=== PATIENT | female | born 1990 | race Caucasian/White ===

== ENCOUNTER 2020-04-26 18:20 | Emergency (ER) | payer BC ==
[2020-04-26] MEDS ORDERED: ACETAMINOPHEN 325 MG TABLET PO ONE (20:06)
--- NOTE | 2020-04-26 20:11 | ER Document Report ---
ED Medical Screen (RME) - General Stated Complaint: VAGINAL BLEEDING Time Seen by Provider: 04/26/20 20:05 Notes: Patient is a 29-year-old female who presents emergency department with a chief complaint of vaginal bleeding that started 1 hour prior to arrival. P atient states that she has some cramping. Patient has never had bleeding before or miscarriage. Denies any clots. States that she had spotting in the beginning of her . Patient is 11 weeks and 5 days . She has seen [facility] for care. Exam: Soft nontender abdomen. I have greeted and performed a rapid initial assessment of this patient. A comprehensive ED assessment and evaluation of the patient, analysis of test results and completion of medical decision making process will be conducted by an additional ED providers. - Related Data Allergies/Adverse Reactions: haloperidol [From Haldol] Allergy (Verified 04/26/20 20:08) Physical Exam - Vital signs Vitals: Temp Pulse Resp BP Pulse Ox 98.5 F 106 H 16 132/64 H 96 04/26/20 18:54 04/26/20 18:54 04/26/20 18:54 04/26/20 18:54 04/26/20 18:54 Course - Vital Signs Vital signs: Temp Pulse Resp BP Pulse Ox 98.5 F 106 H 16 132/64 H 96 04/26/20 18:54 04/26/20 18:54 04/26/20 18:54 04/26/20 18:54 04/26/20 18:54
[2020-04-26 20:52] LABS: ABSOLUTE BASOPHILS # (AUTO) 0.1 10^3/uL (0.0-0.2); ABSOLUTE EOSINOPHILS # (AUTO) 0.4 10^3/uL (0.0-0.6); ABSOLUTE LYMPHOCYTES (AUTO) 3.2 10^3/uL (0.5-4.7); ABSOLUTE MONOCYTES (AUTO) 0.8 10^3/uL (0.1-1.4); EOSINOPHILS % (AUTO) 2.5 % (0-6); HEMOGLOBIN 13.9 g/dL (12.0-15.5); LYMPHOCYTES % (AUTO) 21.8 % (13-45); MEAN CORPUSCULAR HEMOGLOBIN 30.9 pg (27.0-33.4); MEAN CORPUSCULAR HGB CONC 34.8 g/dL (32.0-36.0); MEAN CORPUSCULAR VOLUME 89 fl (80-97); MONOCYTES % (AUTO) 5.6 % (3-13); PLATELET COUNT 254 10^3/uL (150-450); RED BLOOD COUNT 4.51 10^6/uL (3.72-5.28); RED CELL DISTRIBUTION WIDTH 13.4 % (11.5-14.0); SEGMENTED NEUTROPHILS % (AUTO) 69.1 % (42-78); TOTAL CELLS COUNTED % (AUTO) 100 %; WHITE BLOOD COUNT 14.5 10^3/uL (4.0-10.5)
[2020-04-26 21:11] LABS: ALBUMIN 4.1 g/dL (3.5-5.0); ALKALINE PHOSPHATASE 59 U/L (38-126); ANION GAP 10 (5-19); ASPARTATE AMINO TRANSFERASE 16 U/L (14-36); BILIRUBIN,DIRECT 0.2 mg/dL (0.0-0.4); BILIRUBIN,TOTAL 0.2 mg/dL (0.2-1.3); BLOOD UREA NITROGEN 9 mg/dL (7-20); CALCIUM 9.8 mg/dL (8.4-10.2); CARBON DIOXIDE 26 mmol/L (22-30); CHLORIDE 100 mmol/L (98-107); GLUCOSE 81 mg/dL (75-110); POTASSIUM 4.3 mmol/L (3.6-5.0)
[2020-04-26 21:12] LABS: APPEARANCE,URINE SLIGHTLY-CLOUDY; BILIRUBIN,URINE NEGATIVE (NEGATIVE); COLOR,URINE YELLOW; GLUCOSE, URINE NEGATIVE (NEGATIVE); KETONES,URINE NEGATIVE (NEGATIVE); LEUKOCYTE ESTERASE,URINE NEGATIVE (NEGATIVE); NITRITE,URINE NEGATIVE (NEGATIVE); PROTEIN,URINE NEGATIVE (NEGATIVE); URINE SPECIFIC GRAVITY 1.025; UROBILINOGEN,URINE NEGATIVE mg/dL (<2.0)
--- NOTE | 2020-04-26 21:51 | RADIOLOGY REPORT (SQ) ---
EXAM: First trimester OB ultrasound. CLINICAL INDICATION: Pain and vaginal bleeding. COMPARISON: None. TECHNIQUE: First trimester OB ultrasound was performed. FINDINGS: Uterus: The uterus measures 13.2 x 8.1 x 7.1 cm. The cervix is closed and measures 3.4 cm in length. A single gestational sac is noted. The crown-rump length is 5.61 cm which correlates with a gestational age of 12 weeks one day. heart rate is 158 bpm. Ovaries and adnexa: The ovary measures 3.8 x 2.2 x 2.4 cm and is morphologically normal. There is normal color and spectral waveforms. The left ovary measures 2.9 x 1.9 x 1.8 cm and also appears normal. Normal color and spectral waveforms. No adnexal mass. No free fluid. IMPRESSION: Single living intrauterine with estimated gestational age of 12 weeks one day and estimated delivery date of 11/07/2020. This correlates with the clinical age.
--- NOTE | 2020-04-26 23:24 | ER Document Report ---
ED General - General Chief Complaint: Vag Bleeding, +preg <12wks Stated Complaint: VAGINAL BLEEDING Time Seen by Provider: 04/26/20 20:05 Mode of Arrival: Ambulatory Information source: Patient Notes: Patient is a 3 para two 29-year-old female coming in today with mild pelvic cramping and bleeding in an 11-1/2-week gestation. Patient reports earlier today at work developing very mild cramping that she characterizes less than her typical menstrual cycle and very mild bleeding which was also less than her menstrual cycle. Was not having any contractions just mild cramping. No nausea vomiting or diarrhea. - Related Data Allergies/Adverse Reactions: bupropion [From Wellbutrin] Allergy (Verified 04/26/20 20:09) erythromycin base Allergy (Verified 04/26/20 20:09) haloperidol [From Haldol] Allergy (Verified 04/26/20 20:08) ziprasidone [From Geodon] Allergy (Verified 04/26/20 20:09) Past Medical History - Social History Smoking Status: Current Every Day Smoker Frequency of alcohol use: None Drug Abuse: None Family History: Reviewed & Not Pertinent Review of Systems - Review of Systems Notes: Constitutional: No fevers. No chills. EENT: No eye redness. No eye pain. No ear pain. No sore throat. Cardiovascular: No chest pain. No palpitations. Respiratory: No cough. No shortness of breath. No respiratory distress. Gastrointestinal: No abdominal pain. No nausea, vomiting, or diarrhea. Genitourinary: Positive pelvic cramping, positive mild vaginal bleeding Musculoskeletal: Atraumatic. No swelling. No deformities. Skin: No rash or lesions. Lymphatic: No swollen lymph nodes. Neurologic: No headache. No syncope. Psychiatric: No suicidal or homicidal ideation. Physical Exam - Vital signs Vitals: Temp Pulse Resp BP Pulse Ox 98.5 F 106 H 16 132/64 H 96 04/26/20 18:54 04/26/20 18:54 04/26/20 18:54 04/26/20 18:54 04/26/20 18:54 - Notes Notes: General: Well-developed, well-nourished. In no acute distress. Non-toxic appearing. Cardiac: Well-perfused. Regular rate and rhythm. No murmurs, rubs, or gallops. Pulmonary: No respiratory distress. No cyanosis. Bilateral lung fiels are clear to auscultation. Abdominal: Non-distended. Non-rigid. Bowels sounds are present in all four quadrants. No guarding or rebound. HEENT: Head is atraumatic. Conjunctivae not reddened. No tearing. PERRL. EOMI. Orbits atraumatic. No periorbital swelling or erythema. Oropharynx is without erythema, swelling, or exudates. Neck: Supple. No adenopathy. No meningismus. Dermatologic: Warm with good turgor. No rash. Atraumatic. Chest: Atraumatic. No chest wall tenderness to palpation. Musculoskeletal: Moves all extremities well. No range of motion deficits. no muscular or joint tenderness. No paraspinal muscle tenderness. no midline spinal tenderness or step-off. Genitourinary: Examination deferred Neurologic: No gross neurologic deficits. Psychiatric: Normal mood. Course - Re-evaluation Re-evalutation: 04/26/20 23:23 Patient was seen earlier in the triage area by Luz Marina. Her work-up is complete at this time. I reassessed the patient. Her symptoms have abated. I shared the information in the news of the living IUP. Encouraged her to drink more water and to go on some pelvic rest until this is all sorted out. Follow- up with obstetrics which she has an appointment on Thursday. - Vital Signs Vital signs: Temp Pulse Resp BP Pulse Ox 98.5 F 106 H 16 132/64 H 96 04/26/20 20:10 04/26/20 18:54 04/26/20 18:54 04/26/20 18:54 04/26/20 18:54 - Laboratory Result Diagrams: 04/26/20 20:31 04/26/20 20:31 Laboratory results interpreted by me: 04/26/20 04/26/20 04/26/20 20:31 20:31 20:31 WBC 14.5 H Absolute Neuts (auto) 10.0 H Sodium 136.0 L Beta HCG, Quant 85612.00 H Urine Blood LARGE H Discharge - Discharge Clinical Impression: Vaginal bleeding during , Elevated blood pressure reading Condition: Good Disposition: HOME, SELF-CARE Instructions: Bleeding During Early ([facility]) Additional Instructions: You need to drink at least 64 ounces of water per day. Preferably more. Suggest pelvic rest until further notice. Please see your histology specialist on Thursday as planned. Forms: Elevated Blood Pressure, Return to Work
[2020-04-27 00:03] VITALS: BP 122/74
== END 2020-04-27 00:05 | disposition home or self-care (01) ==
LOC: ER 18:20
DX: O20.9 Hemorrhage in early pregnancy, unspecified (principal); R03.0 Elevated blood-pressure reading, without diagnosis of hypertension; O99.331 Smoking (tobacco) complicating pregnancy, first trimester; Z3A.11 11 weeks gestation of pregnancy
CPT/HCPCS: 36415; 76801; 80053; 81001; 83690; 84702; 85025; 86900; 86901; 93976; 99284